=== PATIENT | female | born 1980 ===

== ENCOUNTER 2024-09-11 17:50 | Emergency (ER) | payer OTHER ==
[~2024-09-11] VITALS: Ht 160 cm; Wt 90.7 kg
[2024-09-11] MEDS ORDERED: Ondansetron 4 MG SoluTab SL ONE ×2 (18:35→21:05)
[2024-09-11] MEDS ORDERED: FLUTICASONE PRO16 GM (19:33)
[2024-09-11] MEDS ORDERED: RX Prepack 2 Tabs Ondansetron ODT 4MG UD ONE (19:40)
[2024-09-11] MEDS ORDERED: Meclizine HCl 25 MG Tab PO ONE (19:40)
[2024-09-11] MEDS ORDERED: MECL25 PO (19:42)
[2024-09-11] MEDS ORDERED: ONDA4ODT MM (21:05)
[2024-09-11] MEDS ORDERED: Ketorolac Tromethamine 30mg Vial IM ONE (21:05)
== END 2024-09-11 21:13 | disposition home or self-care (01) ==
LOC: ER 17:50
DX: H81.12 Benign paroxysmal vertigo, left ear (principal); Z59.89 Other problems related to housing and economic circumstances; Z79.899 Other long term (current) drug therapy; Z87.891 Personal history of nicotine dependence
CPT/HCPCS: 96372; 99283-25; A9270; J1885

== ENCOUNTER 2025-03-15 09:03 | Emergency (ER) | payer OTHER ==
[~2025-03-15] VITALS: Ht 160 cm; Wt 99.8 kg
[~2025-03-15 09:03] MED LIST: FLUTICASONE PRO16 GM; MECL25 PO; ONDA4ODT MM
== END 2025-03-15 11:30 | disposition home or self-care (01) ==
LOC: ER 09:03
DX: S60.444A External constriction of right ring finger, initial encounter (principal); W49.04XA Ring or other jewelry causing external constriction, initial encounter; Z87.891 Personal history of nicotine dependence; Z79.899 Other long term (current) drug therapy; Z59.89 Other problems related to housing and economic circumstances
CPT/HCPCS: 73140; 99283-25